=== PATIENT | male | born 1960 | race Caucasian/White ===

== ENCOUNTER 2017-10-04 07:40 | Day surgery (SDC) | payer OTHER ==
[2017-10-02 10:08] VITALS: BMI 22.4
[2017-10-04 08:52] VITALS: TEMP 97.4
[2017-10-04 09:43] VITALS: BP 102/67; PULSE 91
== END 2017-10-04 09:40 | disposition home or self-care (01) ==
LOC: FASU-ENDO 07:40
PROVIDERS: ATTEND Internal Medicine Gastroenterology
PROC: 0DBH8ZX Excision of Cecum, Via Natural or Artificial Opening Endoscopic, Diagnostic (ICD-10-PCS; principal; 2017-10-04)
PROC: 0DBN8ZX Excision of Sigmoid Colon, Via Natural or Artificial Opening Endoscopic, Diagnostic (ICD-10-PCS; 2017-10-04)
DX: Z86.010 Personal history of colon polyps (principal); D12.5 Benign neoplasm of sigmoid colon
CPT/HCPCS: 88305-TC

== ENCOUNTER 2022-03-30 07:37 | Day surgery (SDC) | payer OTHER ==
[2022-03-28 11:30] VITALS: BMI 21.7
[2022-03-30] MEDS ORDERED: LIDOCAINE HCL/PF 2% SDV 5ML VIAL ONE (07:43)
[2022-03-30] MEDS ORDERED: PROPOFOL 120 ML ONE (07:43)
[2022-03-30 08:48] VITALS: RESP 18; TEMP 97.8
[2022-03-30 09:02] VITALS: BP 115/75; PULSE 88
== END 2022-03-30 09:20 | disposition home or self-care (01) ==
LOC: FASU-ENDO 07:37
PROVIDERS: ATTEND Internal Medicine Gastroenterology
PROC: 0DJD8ZZ Inspection of Lower Intestinal Tract, Via Natural or Artificial Opening Endoscopic (ICD-10-PCS; principal; 2022-03-30 08:23)
DX: Z12.11 Encounter for screening for malignant neoplasm of colon (principal); Z86.010 Personal history of colon polyps; Z80.0 Family history of malignant neoplasm of digestive organs